=== PATIENT | female | born 1990 | race African-American/Black ===

== ENCOUNTER 2016-12-08 11:16 | Emergency (ER) | payer OTHER ==
[~2016-12-08 11:16] MED LIST: IBUPROFEN800 M1 PO; JANUMET 500 MG-1 TAB PO; LEVEMIR FLEX100 U/ML SC; LEVEMIR100 U/ML SC; MAGIC MOUTHWASH PO; NICOTINE PO; NORCO 325 MG-51 TAB PO; NOVOLOG FLEX100 U/ML SC; QUETIAPINE FUMA25 MG PO; SEROQUEL50 MG PO; VOLTAREN50 MG PO
--- NOTE | 2016-12-08 11:49 | ED SKIN/ALLERGY COMPLAINT ---
History of Present Illness General Chief Complaint: Skin Rash/ Abcess Stated Complaint: RT UNDER ARM ABCESS Source: patient, old records Exam Limitations: no limitations Vital Signs & Intake/Output Vital Signs & Intake/Output Vital Signs Date Time Temp Pulse Resp B/P B/P Pulse O2 O2 Flow FiO2 Mean Ox Delivery Rate 12/08 1334 98.0 88 20 100/60 98 Room Air 12/08 1130 97.9 90 16 95/64 96 Room Air Allergies Coded Allergies: NO KNOWN ALLERGIES (08/11/15) Reconcile Medications Cephalexin (Keflex) 500 MG CAPSULE 1 CAP PO TID ABSCESS Ibuprofen 800 MG TABLET 1 TAB PO Q8 PRN PAIN Insulin Detemir (Levemir) 100 U/ML KELVIN 20 UNIT SC QAM DIABETES (Reported) [MAGIC MOUTHWASH] 10 ML PO Q6H PRN SORE THROAT ONE THIRD mAALOX, ONE THIRD VISCOUS LIDOCAINE, ONE THIRD bENADRYL Metformin Hydrochloride/Yelitza (Janumet 500 MG-50 MG) (Unknown Strength) TAB ( Unknown Dose) PO BID DIABETES (Reported) Oxycodone HCl/Acetaminophen (Percocet 5-325 MG Tablet) 5 MG-325 MG TABLET 1 TAB PO BID PAIN Quetiapine Fumarate (Seroquel) 50 MG TAB 1 TAB PO QPM SLEEP (Reported) Sulfamethoxazole/Trimethoprim (Bactrim Ds Tablet) 800 MG-160 MG TABLET 1 TAB PO BID ABSCESS Triage Note: PT TO ED WITH RT UNDERARM ABCESS. STATES IT IS REDDENED AND HAS AN ODOR, DENIES DISCHARGE. Triage Nurses Notes Reviewed? yes Onset: Abrupt Duration: day(s): (3), constant Timing: recent history Severity: moderate Severity Numbers: 7 Location: axilla Associated Symptoms: DENIES : No Patient currently breastfeeds: No HPI: 26 -year-old female presents to ER for evaluation going 3 day history of an abscess to her right axilla. Patient states she's had history of cysts in the past however states his, when themselves never prior incision and drainage. She reports some moderate aching throbbing pain worse with palpation. No fever no chills no headache. She denies any recent tick or insect bite. No modifying factors or associated symptoms otherwise. (YAZMIN ISSA,JOSHUA) Past History Travel History Traveled to [place] past 21 day No Medical History Any Pertinent Medical History? see below for history Neurological: NONE EENT: NONE Cardiovascular: NONE Respiratory: NONE Gastrointestinal: NONE Hepatic: NONE Renal: NONE Musculoskeletal: NONE Psychiatric: anxiety, rule out bipolar disorder per patient, history of OCD Endocrine: NEW ONSET DM Blood Disorders: NONE Cancer(s): NONE MANUFACTURING SHIFT SUPERVISOR/Reproductive: NONE History of MRSA: No History of VRE: No History of CDIFF: No Surgical History Surgical History: non-contributory Psychosocial History Who do you live with Family What is your primary language Spanish Tobacco Use: Never used Family History Family History, If Any: FATHER (dm2 at age 40). Hx Contributory? No (JOSHUA GREGORY) Review of Systems Review of Systems Constitutional: Reports: see HPI. All Other Systems: Reviewed and Negative Comments Review of systems: See HPI, All other systems negative. Constitutional, no chills no fever, no malaise HEENT: no sore throat no congestion Cardiovascular: No chest pain , no palpitation Skin: no rashes, no change in skin Respiratory: No dyspnea no cough no sputum GI: No nausea no vomiting, Muscle skeletal: No joint pain, no back pain, no neck pain, Neurologic: no headache Psych: No stress Heme/endocrine: No bruising Immunology: No lymphadenopathy (JOSHUA GREGORY) Physical Exam Physical Exam General Appearance: well developed/nourished, no apparent distress, alert, awake Comments: Well-developed well-nourished patient in no apparent distress. HEENT: Atraumatic, extraocular motion intact Neck: Supple, FROM Back: FROM Cardiovascular: Regular rate and rhythms no murmurs Respiratory: No respiratory distress. Patient speaking in full complete sentences. Breath sounds clear to auscultation bilaterally: NO W/R/R Extremities: full range of motion Neuro: awake, alert, and oriented to person, place and time. There were no obvious focal neurologic abnormalities. Skin: Warm & dry; indurated fluctuant abscess 3 cm to the right AXILLA, no overlying erythema Psych: Mood affect normal, normal memory normal judgment. (JOSHUA GREGORY) Progress Differential Diagnosis: abscess/cellulitis, contact dermatitis, erythema multiforme Plan of Care: Orders Procedure Date/time Status EXTREMETIES CULTURE 12/08 1211 Active Current Medications Sig/Davion Start time Last Medication Dose Stop Time Status Admin Lidocaine/Epinephrine 20 ML ONCE ONE 12/08 1230 CAN 12/08 1231 Microbiology 12/08 1240 EXTREMITIE: Culture & Sensitivity - RECD 12/08 124 EXTREMITIE: Gram Stain - RECD The abscess was anesthetized with lidocaine, a small incision was made using an 11 blade, cultures were sent a large amount of purulent discharge was expressed however the patient was refusing any further anesthesia for pain control. I discussed with her that she would benefit from more drainage and irrigation which she is refusing. again d/w the pt that we have not fully completed jah procedure however she is refusing more anesthesia/drainiage. rx for bactrim and keflex and percocet provided. advsied close f/u for wound cehck in 48 hours. return at anytime sonoer with any concerns (JOSHUA GREGORY) Departure Departure Time of Disposition: 1246 Disposition: HOME OR SELF CARE Condition: Stable Clinical Impression Primary Impression: Abscess Referrals: UNKNOWN (PCP/Family) Additional Instructions: BACTRIM KEFLEX DIRECTED, WARM COMPRESSES, PERCOCET FOR PAIN. THIS IS A NARCOTIC, NO DRIVING OR DRINKING ALCOHOL WHILE TAKING. RETURN TO THE ER IN 48 HOURS FOR WOUND CHECK. RETURN AT ANYTIME SOONER WITH ANY CONCERNS THESE WERE SENT TO [facility] Departure Forms: Customer Survey General Discharge Information Prescriptions: Current Visit Scripts Sulfamethoxazole/Trimethoprim (Bactrim Ds Tablet) 1 TAB PO BID #14 TAB Cephalexin (Keflex) 1 CAP PO TID #21 CAP Oxycodone HCl/Acetaminophen (Percocet 5-325 MG Tablet) 1 TAB PO BID #10 TAB (JOSHUA GREGORY) PA/IMPLEMENTATION MANAGER Co-Sign Statement Statement: ED Attending supervision documentation- [] I saw and evaluated the patient. I have also reviewed all the pertinent lab results and diagnostic results. I agree with the findings and the plan of care as documented in the PA's/IMPLEMENTATION MANAGER's documentation. [X] I have reviewed the ED Record and agree with the PA's/IMPLEMENTATION MANAGER's documentation. [] Additions or exceptions (if any) to the PAs/IMPLEMENTATION MANAGER's note and plan are summarized below: [] (SAHRA JAUREGUI,CHERYL Patel) Procedures Incision and Drainage Site: r axilla Blade Size: 11 I & D Procedure: Yes: betadine prep, sterile drapes applied, sterile dressing applied. (JOSHUA GREGORY)
[2016-12-08] MEDS ORDERED: PERCOCET 5-3251 EACH PO (12:49)
[2016-12-08] MEDS ORDERED: BACTRIM DS TAB1 EACH PO (12:49)
[2016-12-08] MEDS ORDERED: KEFLEX500 M1 PO (12:49)
[2016-12-08 13:34] VITALS: BP 100/60
== END 2016-12-08 13:35 ==
LOC: ERH 11:16
DX: L02.411 Cutaneous abscess of right axilla (principal)
CPT/HCPCS: 87070

== ENCOUNTER 2017-12-02 18:41 | Emergency (ER) | payer OTHER ==
[~2017-12-02 18:41] MED LIST changes: +BACTRIM DS TAB1 EACH PO; +DIFLUCAN150 M1 PO; +KEFLEX500 M1 PO; +LEVEMIR FL100 UNIT/1 SC; -LEVEMIR100 U/ML SC; +NOVOLOG FL100 UNIT/1 SC; +PERCOCET 5-3251 EACH PO
[2017-12-02 19:47] LABS: ABSOLUTE BASOPHIL COUNT 0.1 /CUMM (0.0-0.2); ABSOLUTE EOSINOPHIL COUNT 0.2 /CUMM (0.0-0.7); ABSOLUTE GRANULOCYTE CT 4.6 /CUMM (1.4-6.5); ABSOLUTE LYMPH COUNT 2.6 /CUMM (1.2-3.4); ABSOLUTE MONOCYTE COUNT 0.4 /CUMM (0.10-0.60); EOSINOPHIL % 3.1 % (0-5); HEMATOCRIT 38.6 % (37-47); MEAN CORPUSCULAR HGB 30.6 PG (27.0-31.0); MEAN CORPUSCULAR HGB CONC 33.7 G/DL (33.0-37.0); MEAN CORPUSCULAR VOLUME 90.7 FL (81.0-99.0); PLATELET COUNT 328 /CUMM (130-400); RBC DISTRIBUTION WIDTH 11.6 % (11.5-14.5); RED BLOOD CELL CT 4.26 /CUMM (4.20-5.40)
--- NOTE | 2017-12-02 19:58 | ED GI/GU/ABDOMINAL COMPLAINT ---
History of Present Illness General Chief Complaint: General Adult Stated Complaint: "DIABETIC RELATED ISSUES" PER PT Source: patient Exam Limitations: no limitations Vital Signs & Intake/Output Vital Signs & Intake/Output Vital Signs Date Time Temp Pulse Resp B/P B/P Pulse O2 O2 Flow FiO2 Mean Ox Delivery Rate 12/02 2046 98.4 99 18 118/79 97 Room Air 12/02 1936 Room Air 12/02 1846 97.9 120 22 117/77 99 Room Air Allergies Coded Allergies: NO KNOWN ALLERGIES (08/11/15) Reconcile Medications Clotrimazole (3-Day Vaginal Cream) 2 % CREAM.APPL 1 A VAG DAILY yeast Fluconazole (Diflucan) 150 MG TABLET 1 TAB PO ONCE yeast Insulin Aspart, Recombinant (Novolog Flexpen) (Unknown Strength) INSULN.PEN ( Unknown Dose) SC SEE SLIDING SCALE DIABETES (Reported) BEFORE MEALS <80 MG NO INSULIN 80-150 8 UNITS 151-200 10 UNITS 201-250 12 UNITS 251-300 14 UNITS 301-350 16 UNITS 351-400 18 UNITS >400 20 UNITS BEDTIME 80-250 NO INSULIN 251-300 2 UNITS 301-350 3 UNITS 351-400 4 UNITS > 400 5 UNITS Insulin Detemir (Levemir Flextouch) 100 UNIT/ML (3 ML) INSULN.PEN 32 UNIT SC BID DIABETES . Triage Note: PER PT RECENT DX OF IDDM HAVING ISSUES WITH RECURRENT YEAST INFECTION ALL MEDS NOT WORKING DENIES D/C. BUT REPORTS ITCH HAD PELVIC 2 WEEKS AGO Triage Nurses Notes Reviewed? yes ? n Is pt currently ? No Onset: Gradual Duration: week(s): Timing: recent history Quality/Severity: moderate HPI: 27-year-old female with history of type 1 diabetes presents to emergency department complaining of resistant yeast infections. Patient states that since she was diagnosed with diabetes she has had on and off yeast infections for over one and a half years. Patient reports full for swelling and itching, clear vaginal discharge. Patient states that she saw her MULTIMEDIA ASSISTANT 2-3 weeks ago, she had swabs done, her MULTIMEDIA ASSISTANT said the swabs came back normal. The patient was treated with a Diflucan and topical antifungals. Patient states that her symptoms improved for a few days however have returned again. Patient denies dysuria, hematuria, urinary frequency, abdominal pain. (Toya ISSA,Amanda Harrison) Past History Travel History Traveled to [place] past 21 day No Medical History Any Pertinent Medical History? see below for history Neurological: NONE EENT: NONE Cardiovascular: NONE Respiratory: NONE Gastrointestinal: NONE Hepatic: NONE Renal: NONE Musculoskeletal: NONE Psychiatric: anxiety Endocrine: IDDM Blood Disorders: NONE Cancer(s): NONE PERSONAL FINANCIAL COUNSELOR/Reproductive: NONE History of MRSA: No History of VRE: No History of CDIFF: No Influenza Vaccine: 03/22/17 Surgical History Surgical History: non-contributory Psychosocial History Who do you live with Family What is your primary language Polish Tobacco Use: Current Not Daily Daily Tobacco Use Amount/Type: =< 4 Cigarettes daily Family History Family History, If Any: FATHER (dm2 at age 40). Hx Contributory? No (Amanda Lechuga) Review of Systems Review of Systems Constitutional: Reports: no symptoms. EENTM: Reports: no symptoms. Respiratory: Reports: no symptoms. Cardiovascular: Reports: no symptoms. GI: Reports: no symptoms. Genitourinary: Reports: see HPI. Musculoskeletal: Reports: no symptoms. Skin: Reports: no symptoms. Neurological/Psychological: Reports: no symptoms. Hematologic/Endocrine: Reports: no symptoms. Immunologic/Allergic: Reports: no symptoms. All Other Systems: Reviewed and Negative (Amanda Lechuga) Physical Exam Physical Exam General Appearance: well developed/nourished, no apparent distress, alert, awake Head: atraumatic, normal appearance Eyes: Bilateral: normal appearance. Ears, Nose, Throat, Mouth: hearing grossly normal Neck: normal inspection, supple, full range of motion Respiratory: no respiratory distress Gastrointestinal: normal bowel sounds, soft, non-tender Pelvic: normal external exam, no cerv. motion tender, thick white vaginal discharge present, no erythema Back: normal inspection, normal range of motion Extremities: normal range of motion Neurologic/Psych: awake, alert, oriented x 3 Skin: intact, normal color, warm/dry Core Measures ACS in differential dx? No Sepsis Present: No Sepsis Focused Exam Completed? No (Amanda Lechuga) Progress Differential Diagnosis: intrauterine , PID/cervicitis, UTI/pyelo, vaginitis, hyperglycemia, diabetes Plan of Care: Orders Procedure Date/time Status TRICHOMONAS 12/02 1956 Complete POTASSIUM HYDROXIDE (CARLOS) 12/02 1956 Complete GENITAL CULTURE 12/02 1956 Active CHLAMYDIA-GC DNA PROBE 12/02 1956 Active HUMAN BETA HCG SCREEN 12/02 1914 Complete COMPREHENSIVE METABOLIC PANEL 12/02 1914 Complete CBC WITHOUT DIFFERENTIAL 12/02 1914 Complete ACETONE 12/02 1914 Complete URINE 12/02 1844 Complete URINALYSIS 12/02 1844 Complete Laboratory Tests 12/02/171919: Urine Color YEL, Urine Clarity HAZY H, Urine pH 6.0, Ur Specific Apex 1.010, Urine Protein NEG, Urine Ketones NEG, Urine Nitrite NEG, Urine Bilirubin NEG, Urine Urobilinogen 0.2, Ur Leukocyte Esterase TRACE H, Ur Microscopic SEDIMENT EXAMINED, Urine RBC RARE, Urine WBC 1-3 H, Ur Epithelial Cells MANY H, Urine Bacteria MOD H, Urine Hemoglobin SMALL H, Urine Glucose NEG, Urine Test NEGATIVE 12/02/171917: Anion Gap 11, Estimated GFR > 60, BUN/Creatinine Ratio 17.1, Glucose 132 H, Calcium 9.5, Total Bilirubin 0.6, AST 18, ALT 16, Alkaline Phosphatase 95, Total Protein 7.2, Albumin 4.2, Globulin 3.0, Albumin/Globulin Ratio 1.4, Total Beta HCG NEGATIVE, CBC w Diff NO MAN DIFF REQ, RBC 4.26, MCV 90.7, MCH 30.6, MCHC 33.7, RDW 11.6, MPV 7.0 L, Gran % 58.0, Lymphocytes % 32.4, Monocytes % 5.5, Eosinophils % 3.1, Basophils % 1.0, Absolute Granulocytes 4.6, Absolute Lymphocytes 2.6, Absolute Monocytes 0.4, Absolute Eosinophils 0.2, Absolute Basophils 0.1, Acetone Level NEGATIVE Microbiology 12/02 2005 GENITAL: GC DNA Probe - RECD 12/02 2005 GENITAL: Chlamydia DNA Probe (CRISTOPHER) - RECD 12/02 2005 GENITAL: CARLOS Preparation - COMP 12/02 2005 GENITAL: Trichomonas Preparation - COMP 12/02 2005 GENITAL: Genital Culture - RECD Patient's labs are stable. Patient swabs do not show evidence of yeast however physical exam shows findings that may be consistent with vaginal candidiasis. Patient to take Diflucan and follow-up with her MULTIMEDIA ASSISTANT. Her vaginitis is chronic, likely related to her diabetes. There is no cervical motion tenderness to indicate PID at this time. The patient agrees with the plan of care. Initial ED EKG: none (ToyaAmanda Moss) Departure Departure Disposition: HOME OR SELF CARE Condition: Stable Clinical Impression Primary Impression: Vaginitis Qualifiers: Chronicity: subacute Qualified Code: N76.1 - Subacute and chronic vaginitis Referrals: Casi Nobles APRN (PCP/Family) Additional Instructions: We gave you the first dose of Diflucan here in the emergency department. If your symptoms are persistent after 72 hours take second tablet of Diflucan as prescribed. Follow-up with your MULTIMEDIA ASSISTANT. Return if worsening symptoms or concerns. Please note that there might be incidental findings in your evaluation that are unrelated to the current emergency department visit. Please notify your primary care doctor about this emergency department visit in order to obtain and review all of the testing performed so that these incidental findings can be monitored as needed. If you had an x-ray performed, please understand that some fractures may not be seen on the initial set of x-rays. If your symptoms persist you might need a repeat set of x-rays to check for such a fracture. If you had a laceration evaluated, please understand that foreign bodies such as glass or wood may not be visible to the naked eye or on plain x-rays. If the wound becomes red, swollen, increasingly more painful or if there is any drainage from the wound, please have it reevaluated by a physician for the possibility of a retained foreign body. If you're unable to follow up as outlined in the discharge instructions please return to the emergency department. Thank you for choosing the [facility] Emergency Department for your care. It was a pleasure to serve you today. Departure Forms: Customer Survey General Discharge Information Prescriptions: Current Visit Scripts Fluconazole (Diflucan) 1 TAB PO ONCE #1 TAB Clotrimazole (3-Day Vaginal Cream) 1 A VAG DAILY #3 A (Amanda Lechuga) PA/NIGHT BAKER Co-Sign Statement Statement: ED Attending supervision documentation- [] I saw and evaluated the patient. I have also reviewed all the pertinent lab results and diagnostic results. I agree with the findings and the plan of care as documented in the PA's/NIGHT BAKER's documentation. [x] I have reviewed the ED Record and agree with the PA's/NIGHT BAKER's documentation. [] Additions or exceptions (if any) to the PAs/NIGHT BAKER's note and plan are summarized below: [] (Roberta JAUREGUI,Jonnathan England)
[2017-12-02 20:47] VITALS: BP 118/79
[2017-12-02] MEDS ORDERED: 3-DAY VAGINAL C21 GM VAG (21:09)
[2017-12-02] MEDS ORDERED: DIFLUCAN150 M1 PO (21:09)
== END 2017-12-02 21:17 ==
LOC: ERH 18:41
PROVIDERS: Pediatrics
DX: N76.0 Acute vaginitis (principal)
CPT/HCPCS: 87070; 81001; 81025; 87491; 87591